=== PATIENT | male | born 1975 | race Caucasian/White ===

== ENCOUNTER 2016-11-14 15:51 | Inpatient (IN) | payer OTHER ==
[2016-11-14 17:19] VITALS: BMI 22.6
--- NOTE | 2016-11-14 20:18 | HP ---
COWS - Scale Resting Pulse: 1= [place] 81-100 Sweatin=Flushed/Facial Moisture Restless Observation: 5= Unable to Sit Still Pupil Size: 1= Pupils >than Normal Bone or Joint Aches: 4=Acute Joint/Muscle Pain Runny Nose/ Eye Tearin= None GI Upset > 30mins: 3= Vomiting/Diarrhea Tremor Observation: 1= Tremor [place], Not Seen Yawning Observation: 0= None Anxiety or Irritability: 4=Extreme Anxiety Goose Flesh Skin: 0=Smooth Skin COWS Score: 21 CIWA Score - CIWA Score Nausea/Vomitin Muscle Tremors: 1-None Visible, but [place] Anxiety: 4-Mod. Anxious/Guarded Agitation: 4-Moderately Restless Paroxysmal Sweats: 3 Orientation: 0-Oriented Tacttile Disturbances: 0-None Auditory Disturbances: 0-None Visual Disturbances: 0-None Headache: 0-None Present CIWA-Ar Total Score: 15 Admission ROS BHS - HPI Chief Complaint: C/O WITHDRAWAL SX'S. SEEKING DETOX TXMENT Allergies/Adverse Reactions: Allergies Allergy/AdvReac Type Severity Reaction Status Date / Time No Known Allergies Allergy Verified 11/14/16 19:34 History of Present Illness: 41 Y.O. MALE WITH POLYSUBSTANCE ABUSE TO INCLUDE ALCOHOL ADMITTED FOR DETOX. CLIENT IS KNOWN TO [facility]. DENIES ANY SIGNIFICANT DRUG FREE PERIOD. Exam Limitations: Language Barrier (IRISH SPEAKING. CAN MAKE NEEDS KNOWN IN [place]) - Ebola screening Have you traveled outside of the country in the last 21 days: No Have you had contact with anyone from an Ebola affected area: No Have you been sick,other than usual withdrawal symptoms: No Do you have a fever: No - Review of Systems Constitutional: Chills, Loss of Appetite, Malaise, Night Sweats, Changes in sleep EENT: reports: No Symptoms Reported Respiratory: reports: No Symptoms reported Cardiac: reports: No Symptoms Reported GI: reports: Nausea, Poor Appetite, Vomiting : reports: No Symptoms Reported Musculoskeletal: reports: Back Pain Integumentary: reports: No Symptoms Reported Neuro: reports: No Symptoms reported Endocrine: reports: No Symptoms Reported Hematology: reports: No Symptoms Reported Psychiatric: reports: Anxious, Depressed Other Systems: Reviewed and Negative Patient History - Patient Medical History Hx Anemia: No Hx Asthma: Yes Hx Chronic Obstructive Pulmonary Disease (COPD): No Hx Cancer: No Hx Cardiac Disorders: No Hx Congestive Heart Failure: No Hx Hypertension: No Hx Hypercholesterolemia: No Hx Pacemaker: No HX Cerebrovascular Accident: No Hx Seizures: No Hx Dementia: No Hx Diabetes: No Hx Gastrointestinal Disorders: No Hx Liver Disease: No Hx Genitourinary Disorders: No Hx Sexually Transmitted Disorders: No Hx Renal Disease (ESRD): No Hx Thyroid Disease: No Hx Human Immunodeficiency Virus (HIV): No (Last Tested Approx. 6 months ago: NEGATIVE.) Hx Hepatitis C: Yes (TX'ED) Hx Depression: Yes Hx Suicide Attempt: No Hx Bipolar Disorder: Yes Hx Schizophrenia: No Other Medical History: ANXIETY - Patient Surgical History Past Surgical History: No Hx Neurologic Surgery: No Hx Cataract Extraction: No Hx Cardiac Surgery: No Hx Lung Surgery: No Hx Breast Surgery: No Hx Breast Biopsy: No Hx Abdominal Surgery: No Hx Appendectomy: No Hx Cholecystectomy: No Hx Genitourinary Surgery: No Hx Section: No Hx Orthopedic Surgery: No Anesthesia Reaction: No - PPD History Previous Implant?: Yes Documented Results: Negative w/o proof Implanted On Prior R Admission?: No PPD to be Administered?: Yes - Smoking Cessation Smoking history: Current every day smoker Have you smoked in the past 12 months: Yes Aproximately how many cigarettes per day: 7 Cigars Per Day: 0 Hx Chewing Tobacco Use: No Initiated information on smoking cessation: Yes 'Breaking Loose' booklet given: 11/14/16 - Substance & Tx. History Hx Alcohol Use: Yes Hx Substance Use: Yes Substance Use Type: Alcohol, Cocaine, Heroin, Marijuana, Opiates, Tranquilizers (XANAX) Hx Substance Use Treatment: Yes ([facility]) - Substances Abused Alcohol Route: Oral Frequency: Daily Amount used: 12 beers 24ounce Age of first use: 15 Date of Last Use: 11/13/16 Heroin Route: Injection Frequency: Daily Amount used: 12 bags Age of first use: 15 Date of Last Use: 11/14/16 Alprazolam (Xanax) Route: Oral Frequency: Daily Amount used: 3 sticks Age of first use: 15 Date of Last Use: 11/13/16 Family Disease History - Family Disease History Family History: Denies Admission Physical Exam BHS - Vital Signs Vital Signs: Vital Signs - 24 hr 11/14/16 17:17 Temperature 97.1 F L Pulse Rate 82 Respiratory 18 Rate Blood Pressure 118/66 - Physical General Appearance: Yes: Appropriately Dressed, Mild Distress, Sweating, Anxious HEENTM: Yes: EOMI, Normocephalic, Normal Voice, ELIJAH, Pharynx Normal Respiratory: Yes: Chest Non-Tender, Lungs Clear, Normal Breath Sounds, No Respiratory Distress, No Accessory Muscle Use Neck: Yes: No masses,lesions,Nodules, Supple, Trachea in good position Breast: Yes: Breast Exam Deferred Cardiology: Yes: Regular Rhythm, Regular Rate, S1, S2 Abdominal: Yes: Normal Bowel Sounds, Non Tender, Flat, Soft Genitourinary: Yes: Within Normal Limits Back: Yes: Normal Inspection Musculoskeletal: Yes: full range of Motion, Gait Steady Extremities: Yes: Normal Capillary Refill, Normal Range of Motion, Non-Tender, Tremors Neurological: Yes: diesel trailer mechanic II-XII NML intact, Fully Oriented, Alert, Motor Strength 5/5 Integumentary: Yes: Normal Color, Warm, Track [place] Lymphatic: Yes: Within Normal Limits - Diagnostic (1) Alcohol dependence with uncomplicated withdrawal Current Visit: Yes Status: Chronic (2) Cannabis dependence, uncomplicated Current Visit: Yes Status: Chronic (3) Opioid dependence with withdrawal Current Visit: Yes Status: Chronic (4) Nicotine dependence Current Visit: Yes Status: Chronic Qualifiers: Nicotine product type: cigarettes Substance use status: uncomplicated Qualified Code(s): F17.210 - Nicotine dependence, cigarettes, uncomplicated (5) Cocaine dependence, uncomplicated Current Visit: Yes Status: Chronic (6) Sedative, hypnotic, or anxiolytic withdrawal Current Visit: Yes Status: Chronic (7) Asthma Current Visit: Yes Status: Chronic Qualifiers: Asthma severity: mild intermittent Asthma complication type: uncomplicated Qualified Code(s): J45.20 - Mild intermittent asthma, uncomplicated Cleared for Admission [facility] - Detox or Rehab [facility] Level of Care: Medically Managed Detox Regimen/Protocol: Methadone/Librium [facility] Breath Alcohol Content Breath Alcohol Content: 0 Urine Drug Screen - Results Drug Screen Negative: No Urine Drug Screen Results: THC-Marijuana, SHAILA-Cocaine, OPI-Opiates, BZO- Benzodiazepines, MTD-Methadone, OXY-Oxycodone
[2016-11-14] MEDS ORDERED: NICOTINE POLACRILEX 2 MG GUM BC PRN (20:33)
[2016-11-14] MEDS ORDERED: ACETAMINOPHEN 325 MG TABLET (FP) PO PRN (20:33)
[2016-11-14] MEDS ORDERED: guaiFENesin/D-METHORPHAN HB 10 ML UNIT-DOSE CUPS PO PRN (20:33)
[2016-11-14] MEDS ORDERED: MAGNESIUM CITRATE 300 ML BOTTLE PO PRN (20:33)
[2016-11-14] MEDS ORDERED: LOPERAMIDE HCL 2 MG CAPSULE PO PRN (20:33)
[2016-11-14] MEDS ORDERED: MAG HYDROX/AL HYDROX/SIMETH 30 ML UNIT-DOSE CUP PO PRN (20:33)
[2016-11-14] MEDS ORDERED: diphenhydrAMINE HCL 50 MG CAPSULE PO PRN (20:33)
[2016-11-14] MEDS ORDERED: MENTHOL/PHENOL 1 EACH UD MM PRN (20:33)
[2016-11-14] MEDS ORDERED: MAGNESIUM HYDROX 2400MG/30ML ORAL SUSPENSION 30 ML CUP PO PRN (20:33)
[2016-11-14] MEDS ORDERED: hydrOXYzine PAMOATE 50 MG CAPSULE (FP) PO PRN (20:33)
[2016-11-14] MEDS ORDERED: chlordiazePOXIDE HCL 25 MG CAPSULE PO PRN (20:33)
[2016-11-14] MEDS ORDERED: IBUPROFEN 400 MG TABLET (FP) PO PRN (20:33)
[2016-11-14] MEDS ORDERED: METHADONE HCL 10 MG TABLET (FOR DETOX USE ONLY) PO ONE ×2 (20:33→23:00)
[2016-11-14] MEDS ORDERED: P-EPHED 60MG/TRIPROLIDI 2.5MG TABLET PO PRN (20:33)
[2016-11-14] MEDS: NICOTINE 14 MG/24 HOURS TOPICAL PATCH TD SCH (21:09)
[2016-11-14 22:21] LABS: URINE APPEARANCE CLEAR; URINE BILIRUBIN NEGATIVE (NEGATIVE); URINE BLOOD NEGATIVE (NEGATIVE); URINE COLOR YELLOW; URINE GLUCOSE (UA) NEGATIVE (NEGATIVE); URINE KETONE TRACE (NEGATIVE); URINE LEUK ESTERASE NEGATIVE (NEGATIVE); URINE NITRITE NEGATIVE (NEGATIVE); URINE PROTEIN NEGATIVE (NEGATIVE); URINE UROBILINOGEN NEGATIVE E.U./dl (0.2-1.0)
[2016-11-14] MEDS: THIAMINE HCL 100 MG TABLET (FP) PO SCH (22:39)
[2016-11-14] MEDS: chlordiazePOXIDE HCL 25 MG CAPSULE PO SCH (22:39)
[2016-11-15] MEDS: chlordiazePOXIDE HCL 25 MG CAPSULE PO SCH ×4 (05:42→22:18)
[2016-11-15] MEDS ORDERED: METHADONE HCL 10 MG TABLET (FOR DETOX USE ONLY) PO SCH (10:00)
[2016-11-15 10:05] LABS: MCH 29.8 pg (25.7-33.7); MCHC 33.5 g/dl (32.0-35.9); MEAN CELL VOLUME 88.9 fl (80-96); MEAN PLT VOLUME 7.9 fl (7.5-11.1); PLATELET COUNT 208 K/MM3 (134-434); RDW 13.5 % (11.9-15.9); WHITE BLOOD COUNT 6.9 K/mm3 (4.0-10.0)
[2016-11-15 10:25] LABS: ALBUMIN 3.3 g/dl (3.4-5.0); ALK PHOS 62 U/L (45-117); ANION GAP 6 (8-16); BILIRUBIN,TOTAL 0.6 mg/dL (0.2-1.0); CALCIUM 8.8 mg/dL (8.5-10.1); CO2 30 mmol/L (21-32); CREATININE 0.9 mg/dL (0.7-1.3); GLUCOSE,RANDOM 89 mg/dL (74-106); SGOT/AST 21 U/L (15-37); SGPT/ALT 22 U/L (12-78)
--- NOTE | 2016-11-15 10:26 | PN ---
S CIWA - CIWA Score Nausea/Vomitin Muscle Tremors: 3 Anxiety: 3 Agitation: 3 Paroxysmal Sweats: 1-Minimal Palms Moist Orientation: 0-Oriented Tacttile Disturbances: 1-Very Mild Itch/Numbness Auditory Disturbances: 1-Very Mild Visual Disturbances: 1-Very Mild Sensitivity Headache: 2-Mild CIWA-Ar Total Score: 18 BHS Progress Note (SOAP) Subjective: ALERT,IRRITABLE,ANXIOUS,INTERRUPTED SLEEP,TREMOR,PAIN IN THE [place] AND BACK Objective: 11/15/16 10:24 Vital Signs Temperature 97.6 F 11/15/16 09:51 Pulse Rate 60 11/15/16 09:51 Respiratory Rate 18 11/15/16 09:51 Blood Pressure 145/83 11/15/16 09:51 O2 Sat by Pulse Oximetry (%) EKG SINUS BRADYCARDIA 57/MIN NO CHEST PAIN,NO SOB,NO DIZZINESS Laboratory Last Values WBC 6.9 K/mm3 (4.0-10.0) 11/15/16 07:00 RBC 4.25 M/mm3 (4.00-5.60) 11/15/16 07:00 Hgb 12.7 GM/dL (11.7-16.9) D 11/15/16 07:00 Hct 37.8 % (35.4-49) D 11/15/16 07:00 MCV 88.9 fl (80-96) 11/15/16 07:00 MCHC 33.5 g/dl (32.0-35.9) 11/15/16 07:00 RDW 13.5 % (11.9-15.9) 11/15/16 07:00 Plt Count 208 K/MM3 (134-434) 11/15/16 07:00 MPV 7.9 fl (7.5-11.1) 11/15/16 07:00 Urine Color Yellow 11/14/16 22:10 Urine Appearance Clear 11/14/16 22:10 Urine pH 5.0 (5.0-8.0) 11/14/16 22:10 Ur Specific [place] 1.030 (1.001-1.035) 11/14/16 22:10 Urine Protein Negative (NEGATIVE) 11/14/16 22:10 Urine Glucose (UA) Negative (NEGATIVE) 11/14/16 22:10 Urine Ketones Trace (NEGATIVE) H 11/14/16 22:10 Urine Blood Negative (NEGATIVE) 11/14/16 22:10 Urine Nitrite Negative (NEGATIVE) 11/14/16 22:10 Urine Bilirubin Negative (NEGATIVE) 11/14/16 22:10 Urine Urobilinogen Negative E.U./dl (0.2-1.0) 11/14/16 22:10 Ur Leukocyte Esterase Negative (NEGATIVE) 11/14/16 22:10 LABS PENDING Assessment: 11/15/16 10:26 WITHDRAWAL SYMPTOM Plan: CONTINUE DETOX
[2016-11-15 10:28] LABS: HIV 1 & 2 AB NEGATIVE; HIV 1 AGp24 NEGATIVE
[2016-11-15] MEDS: NICOTINE 14 MG/24 HOURS TOPICAL PATCH TD SCH (10:37)
[2016-11-15] MEDS: PRENATAL VITAMINS W/ FOLIC ACID TABLET (FP) PO SCH (10:39)
--- NOTE | 2016-11-15 11:12 | CONSULT ---
[facility] Psychiatric Consult - Data Date of interview: 11/15/16 Admission source: [facility] Identifying data: This is 41 years old male with psychiatric hospitalization history intoxciated with: Ngppy1lb, Cocaine, Cannabis, Opioids and Xanax Substance Abuse History: - Smoking Cessation. Smoking history: Current every day smoker. Have you smoked in the past 12 months: Yes. Aproximately how many cigarettes per day: 7. Cigars Per Day: 0. Hx Chewing Tobacco Use: No. Initiated information on smoking cessation: Yes. 'Breaking Loose' booklet given : 11/14/16. - Substance & Tx. History. Hx Alcohol Use: Yes. Hx Substance Use : Yes. Substance Use Type: Alcohol, Cocaine, Heroin, Marijuana, Opiates, Tranquilizers (XANAX). Hx Substance Use Treatment: Yes ([facility] - Substances Abused. Alcohol. Route: Oral. Frequency: Daily. Amount used: 12 beers 24ounce. Age of first use: 15. Date of Last Use: 11/13/16. Heroin. Route : Injection. Frequency: Daily. Amount used: 12 bags. Age of first use: 15. Date of Last Use: 11/14/16. Alprazolam (Xanax). Route: Oral. Frequency: Daily. Amount used: 3 sticks. Age of first use: 15. Date of Last Use: Medical History: Asthma Psychiatric History: Patient reports history of depression and anxiety, reports most recent psychiatric admission for safety on 2012 at [facility], reports taking prior to admission: Trazodone 50mg po qhs. Seroquel 200mg po qhs Physical/Sexual Abuse/Trauma History: Denies Additional Comment: Trazodone 50mg po qhs. Seroquel 200mg po qhs Mental Status Exam - Mental Status Exam Alert and Oriented to: Person Cognitive Function: Fair Patient Appearance: Unkempt Mood: Sad Affect: Flat Patient Behavior: Sedated Speech Pattern: Delayed Voice Loudness: Mildly Soft/Quiet Thought Process: Circumstantial Thought Disorder: Being Controlled Hallucinations: Denies Suicidal Ideation: Denies Homicidal Ideation: Denies Insight/Judgement: Fair Sleep: Difficulty falling asleep Appetite: Fair Muscle strength/Tone: Mild Hypotonicity Gait/Station: Shuffling Additional Comments: Trazodone 50mg po qhs. Seroquel 200mg po qhs Psychiatric Findings - Problem List ([place] 1, 2,3) (1) Alcohol dependence with uncomplicated withdrawal Current Visit: Yes Status: Chronic (2) Cannabis dependence, uncomplicated Current Visit: Yes Status: Chronic (3) Cocaine dependence, uncomplicated Current Visit: Yes Status: Chronic (4) Nicotine dependence Current Visit: Yes Status: Chronic Qualifiers: Nicotine product type: cigarettes Substance use status: uncomplicated Qualified Code(s): F17.210 - Nicotine dependence, cigarettes, uncomplicated (5) Opioid dependence with withdrawal Current Visit: Yes Status: Chronic (6) Sedative, hypnotic, or anxiolytic withdrawal Current Visit: Yes Status: Chronic (7) Drug-induced mood disorder Current Visit: Yes Status: Acute - Initial Treatment Plan Initial Treatment Plan: Trazodone 50mg po qhs. Seroquel 200mg po qhs
--- NOTE | 2016-11-15 15:27 | EKG ---
Test Reason : Blood Pressure : / mmHG Vent. Rate : 057 BPM Atrial Rate : 057 BPM P-R Int : 164 ms QRS Dur : 094 ms QT Int : 416 ms P-R-T Axes : 036 030 033 degrees QTc Int : 404 ms SINUS BRADYCARDIA INCOMPLETE RIGHT BUNDLE BRANCH BLOCK BORDERLINE ECG NO PREVIOUS ECGS AVAILABLE Confirmed by ADORE JACKSON MD ([id number]) on 11/15/2016 3:27:09 PM Referred By: Confirmed By:ADORE JACKSON MD
[2016-11-15] MEDS: QUEtiapine FUMARATE 200 MG TABLET PO SCH (22:18)
[2016-11-15] MEDS: traZODone HCL 50 MG TABLET (FP) PO SCH (22:18)
[2016-11-15] MEDS: THIAMINE HCL 100 MG TABLET (FP) PO SCH (22:18)
[2016-11-16] MEDS: chlordiazePOXIDE HCL 25 MG CAPSULE PO SCH ×3 (05:20→17:29)
[2016-11-16] MEDS: NICOTINE 14 MG/24 HOURS TOPICAL PATCH TD SCH (10:44)
[2016-11-16] MEDS: PRENATAL VITAMINS W/ FOLIC ACID TABLET (FP) PO SCH (10:44)
[2016-11-16] MEDS: METHADONE HCL 5 MG TABLET (FOR DETOX USE ONLY) PO SCH (10:44)
--- NOTE | 2016-11-16 15:23 | PN ---
[facility] CIWA - CIWA Score Nausea/Vomitin-Mild Nausea/No Vomiting Muscle Tremors: 2 Anxiety: 4-Mod. Anxious/Guarded Agitation: 1-Slight > Activity Paroxysmal Sweats: 2 Orientation: 2-Disoriented Date<2 days Tacttile Disturbances: 0-None Auditory Disturbances: 3-Moderate Harsh/Frighten Visual Disturbances: 1-Very Mild Sensitivity Headache: 0-None Present CIWA-Ar Total Score: 16 S COWS - Scale Resting Pulse: 0= [place] 80 or Below Sweatin= Chills/Flushing Restless Observation: 1= Difficult to Sit Still Pupil Size: 0= Normal to Room Light Bone or Joint Aches: 1= Mild Discomfort Runny Nose/ Eye Tearin= None GI Upset > 30mins: 1= Stomach Cramp Tremor Observation of Outstretched Hands: 2= Slight Tremor Visible Yawning Observation: 1= 1-2x During Session Anxiety or Irritability: 2=Irritable/Anxious Goose Flesh Skin: 3=Piloerection COWS Score: 12 S Progress Note (SOAP) Subjective: Fatigue, Interrupted Sleep, Anxious. Objective: PT. A & O X 2 (DISORIENTED ABOUT DAY / DATE). 11/16/16 15:21 Vital Signs Temperature 97.7 F 11/16/16 14:19 Pulse Rate 55 L 11/16/16 14:19 Respiratory Rate 18 11/16/16 14:19 Blood Pressure 141/87 11/16/16 14:19 O2 Sat by Pulse Oximetry (%) Laboratory Last Values WBC 6.9 K/mm3 (4.0-10.0) 11/15/16 07:00 RBC 4.25 M/mm3 (4.00-5.60) 11/15/16 07:00 Hgb 12.7 GM/dL (11.7-16.9) D 11/15/16 07:00 Hct 37.8 % (35.4-49) D 11/15/16 07:00 MCV 88.9 fl (80-96) 11/15/16 07:00 MCHC 33.5 g/dl (32.0-35.9) 11/15/16 07:00 RDW 13.5 % (11.9-15.9) 11/15/16 07:00 Plt Count 208 K/MM3 (134-434) 11/15/16 07:00 MPV 7.9 fl (7.5-11.1) 11/15/16 07:00 Sodium 141 mmol/L (136-145) 11/15/16 07:00 Potassium 3.9 mmol/L (3.5-5.1) 11/15/16 07:00 Chloride 105 mmol/L (98-107) 11/15/16 07:00 Carbon Dioxide 30 mmol/L (21-32) 11/15/16 07:00 Anion Gap 6 (8-16) L 11/15/16 07:00 BUN 29 mg/dL (7-18) H D 11/15/16 07:00 Creatinine 0.9 mg/dL (0.7-1.3) 11/15/16 07:00 Creat Clearance w eGFR > 60 (>60) 11/15/16 07:00 Random Glucose 89 mg/dL (74-106) 11/15/16 07:00 Calcium 8.8 mg/dL (8.5-10.1) 11/15/16 07:00 Total Bilirubin 0.6 mg/dL (0.2-1.0) D 11/15/16 07:00 AST 21 U/L (15-37) D 11/15/16 07:00 ALT 22 U/L (12-78) 11/15/16 07:00 Alkaline Phosphatase 62 U/L (45-117) D 11/15/16 07:00 Total Protein 6.0 g/dl (6.4-8.2) L 11/15/16 07:00 Albumin 3.3 g/dl (3.4-5.0) L 11/15/16 07:00 Urine Color Yellow 11/14/16 22:10 Urine Appearance Clear 11/14/16 22:10 Urine pH 5.0 (5.0-8.0) 11/14/16 22:10 Ur Specific [place] 1.030 (1.001-1.035) 11/14/16 22:10 Urine Protein Negative (NEGATIVE) 11/14/16 22:10 Urine Glucose (UA) Negative (NEGATIVE) 11/14/16 22:10 Urine Ketones Trace (NEGATIVE) H 11/14/16 22:10 Urine Blood Negative (NEGATIVE) 11/14/16 22:10 Urine Nitrite Negative (NEGATIVE) 11/14/16 22:10 Urine Bilirubin Negative (NEGATIVE) 11/14/16 22:10 Urine Urobilinogen Negative E.U./dl (0.2-1.0) 11/14/16 22:10 Ur Leukocyte Esterase Negative (NEGATIVE) 11/14/16 22:10 RPR Titer Nonreactive (NONREACTIVE) 11/15/16 07:00 Hepatitis C Antibody >11.0 s/co ratio (0.0-0.9) H 11/14/16 07:00 HIV 1&2 Antibody Screen Negative 11/14/16 07:00 HIV P24 Antigen Negative 11/14/16 07:00 LABS NOTED. 11/16/16 15:22 Assessment: 11/16/16 15:22 WITHDRAWAL SYMPTOMS. Plan: CONTINUE DETOX. INCREASE PO FLUIDS. ADVISED PATIENT TO FOLLOW-UP WITH BEAD SUPERVISOR / REHAB MEDICAL PROVIDER AFTER DISCHARGE FROM DETOX FOR GENERAL MEDICAL ASSESSMENT AND FOR ABNORMAL ADMISSION LAB VALUES.
[2016-11-16] MEDS: traZODone HCL 50 MG TABLET (FP) PO SCH (22:32)
[2016-11-16] MEDS: QUEtiapine FUMARATE 200 MG TABLET PO SCH (22:32)
[2016-11-16] MEDS: THIAMINE HCL 100 MG TABLET (FP) PO SCH (22:32)
[2016-11-16] MEDS: chlordiazePOXIDE 5 MG CAPSULE PO SCH (22:32)
[2016-11-17] MEDS: chlordiazePOXIDE 5 MG CAPSULE PO SCH ×3 (05:50→17:46)
[2016-11-17] MEDS: PRENATAL VITAMINS W/ FOLIC ACID TABLET (FP) PO SCH (10:35)
[2016-11-17] MEDS: METHADONE HCL 5 MG TABLET (FOR DETOX USE ONLY) PO SCH (10:35)
[2016-11-17] MEDS: NICOTINE 14 MG/24 HOURS TOPICAL PATCH TD SCH (10:35)
--- NOTE | 2016-11-17 14:48 | PN ---
BHS Progress Note (SOAP) Subjective: Body Aches, Fatigue. Objective: PT. A & O X 3 . 11/17/16 14:47 Vital Signs Temperature 96.1 F L 11/17/16 13:13 Pulse Rate 55 L 11/17/16 13:13 Respiratory Rate 16 11/17/16 13:13 Blood Pressure 118/69 11/17/16 13:13 O2 Sat by Pulse Oximetry (%) Laboratory Last Values WBC 6.9 K/mm3 (4.0-10.0) 11/15/16 07:00 RBC 4.25 M/mm3 (4.00-5.60) 11/15/16 07:00 Hgb 12.7 GM/dL (11.7-16.9) D 11/15/16 07:00 Hct 37.8 % (35.4-49) D 11/15/16 07:00 MCV 88.9 fl (80-96) 11/15/16 07:00 MCHC 33.5 g/dl (32.0-35.9) 11/15/16 07:00 RDW 13.5 % (11.9-15.9) 11/15/16 07:00 Plt Count 208 K/MM3 (134-434) 11/15/16 07:00 MPV 7.9 fl (7.5-11.1) 11/15/16 07:00 Sodium 141 mmol/L (136-145) 11/15/16 07:00 Potassium 3.9 mmol/L (3.5-5.1) 11/15/16 07:00 Chloride 105 mmol/L (98-107) 11/15/16 07:00 Carbon Dioxide 30 mmol/L (21-32) 11/15/16 07:00 Anion Gap 6 (8-16) L 11/15/16 07:00 BUN 29 mg/dL (7-18) H D 11/15/16 07:00 Creatinine 0.9 mg/dL (0.7-1.3) 11/15/16 07:00 Creat Clearance w eGFR > 60 (>60) 11/15/16 07:00 Random Glucose 89 mg/dL (74-106) 11/15/16 07:00 Calcium 8.8 mg/dL (8.5-10.1) 11/15/16 07:00 Total Bilirubin 0.6 mg/dL (0.2-1.0) D 11/15/16 07:00 AST 21 U/L (15-37) D 11/15/16 07:00 ALT 22 U/L (12-78) 11/15/16 07:00 Alkaline Phosphatase 62 U/L (45-117) D 11/15/16 07:00 Total Protein 6.0 g/dl (6.4-8.2) L 11/15/16 07:00 Albumin 3.3 g/dl (3.4-5.0) L 11/15/16 07:00 Urine Color Yellow 11/14/16 22:10 Urine Appearance Clear 11/14/16 22:10 Urine pH 5.0 (5.0-8.0) 11/14/16 22:10 Ur Specific [place] 1.030 (1.001-1.035) 11/14/16 22:10 Urine Protein Negative (NEGATIVE) 11/14/16 22:10 Urine Glucose (UA) Negative (NEGATIVE) 11/14/16 22:10 Urine Ketones Trace (NEGATIVE) H 11/14/16 22:10 Urine Blood Negative (NEGATIVE) 11/14/16 22:10 Urine Nitrite Negative (NEGATIVE) 11/14/16 22:10 Urine Bilirubin Negative (NEGATIVE) 11/14/16 22:10 Urine Urobilinogen Negative E.U./dl (0.2-1.0) 11/14/16 22:10 Ur Leukocyte Esterase Negative (NEGATIVE) 11/14/16 22:10 RPR Titer Nonreactive (NONREACTIVE) 11/15/16 07:00 Hepatitis C Antibody >11.0 s/co ratio (0.0-0.9) H 11/14/16 07:00 HIV 1&2 Antibody Screen Negative 11/14/16 07:00 HIV P24 Antigen Negative 11/14/16 07:00 LABS NOTED. 11/17/16 14:48 Assessment: 11/17/16 14:48 WITHDRAWAL SYMPTOMS. Plan: CONTINUE DETOX. ADVISED PATIENT TO FOLLOW-UP WITH SENIOR QA AUTOMATION ENGINEER / REHAB MEDICAL PROVIDER AFTER DISCHARGE FROM DETOX FOR GENERAL MEDICAL ASSESSMENT AND FOR ABNORMAL ADMISSION LAB VALUES.
[2016-11-17] MEDS: QUEtiapine FUMARATE 200 MG TABLET PO SCH (23:10)
[2016-11-17] MEDS: traZODone HCL 50 MG TABLET (FP) PO SCH (23:10)
[2016-11-17] MEDS: THIAMINE HCL 100 MG TABLET (FP) PO SCH (23:10)
[2016-11-17] MEDS: chlordiazePOXIDE HCL 10 MG CAPSULE PO SCH (23:11)
[2016-11-18] MEDS: chlordiazePOXIDE HCL 10 MG CAPSULE PO SCH ×3 (05:44→17:29)
[2016-11-18] MEDS ORDERED: METHADONE HCL 10 MG TABLET (FOR DETOX USE ONLY) PO SCH (10:00)
[2016-11-18] MEDS: NICOTINE 14 MG/24 HOURS TOPICAL PATCH TD SCH (10:33)
[2016-11-18] MEDS: PRENATAL VITAMINS W/ FOLIC ACID TABLET (FP) PO SCH (10:33)
--- NOTE | 2016-11-18 11:05 | PN ---
S Progress Note (SOAP) Subjective: Anxious, Interrupted Sleep, Body Aches, Fatigued, Sweats Objective: Vital Signs Temperature 96.3 F L 11/18/16 06:32 Pulse Rate 59 L 11/18/16 06:32 Respiratory Rate 18 11/18/16 06:32 Blood Pressure 129/71 11/18/16 06:32 O2 Sat by Pulse Oximetry (%) Laboratory Last Values WBC 6.9 K/mm3 (4.0-10.0) 11/15/16 07:00 RBC 4.25 M/mm3 (4.00-5.60) 11/15/16 07:00 Hgb 12.7 GM/dL (11.7-16.9) D 11/15/16 07:00 Hct 37.8 % (35.4-49) D 11/15/16 07:00 MCV 88.9 fl (80-96) 11/15/16 07:00 MCHC 33.5 g/dl (32.0-35.9) 11/15/16 07:00 RDW 13.5 % (11.9-15.9) 11/15/16 07:00 Plt Count 208 K/MM3 (134-434) 11/15/16 07:00 MPV 7.9 fl (7.5-11.1) 11/15/16 07:00 Sodium 141 mmol/L (136-145) 11/15/16 07:00 Potassium 3.9 mmol/L (3.5-5.1) 11/15/16 07:00 Chloride 105 mmol/L (98-107) 11/15/16 07:00 Carbon Dioxide 30 mmol/L (21-32) 11/15/16 07:00 Anion Gap 6 (8-16) L 11/15/16 07:00 BUN 29 mg/dL (7-18) H D 11/15/16 07:00 Creatinine 0.9 mg/dL (0.7-1.3) 11/15/16 07:00 Creat Clearance w eGFR > 60 (>60) 11/15/16 07:00 Random Glucose 89 mg/dL (74-106) 11/15/16 07:00 Calcium 8.8 mg/dL (8.5-10.1) 11/15/16 07:00 Total Bilirubin 0.6 mg/dL (0.2-1.0) D 11/15/16 07:00 AST 21 U/L (15-37) D 11/15/16 07:00 ALT 22 U/L (12-78) 11/15/16 07:00 Alkaline Phosphatase 62 U/L (45-117) D 11/15/16 07:00 Total Protein 6.0 g/dl (6.4-8.2) L 11/15/16 07:00 Albumin 3.3 g/dl (3.4-5.0) L 11/15/16 07:00 Urine Color Yellow 11/14/16 22:10 Urine Appearance Clear 11/14/16 22:10 Urine pH 5.0 (5.0-8.0) 11/14/16 22:10 Ur Specific [place] 1.030 (1.001-1.035) 11/14/16 22:10 Urine Protein Negative (NEGATIVE) 11/14/16 22:10 Urine Glucose (UA) Negative (NEGATIVE) 11/14/16 22:10 Urine Ketones Trace (NEGATIVE) H 11/14/16 22:10 Urine Blood Negative (NEGATIVE) 11/14/16 22:10 Urine Nitrite Negative (NEGATIVE) 11/14/16 22:10 Urine Bilirubin Negative (NEGATIVE) 11/14/16 22:10 Urine Urobilinogen Negative E.U./dl (0.2-1.0) 11/14/16 22:10 Ur Leukocyte Esterase Negative (NEGATIVE) 11/14/16 22:10 RPR Titer Nonreactive (NONREACTIVE) 11/15/16 07:00 Hepatitis C Antibody >11.0 s/co ratio (0.0-0.9) H 11/14/16 07:00 HIV 1&2 Antibody Screen Negative 11/14/16 07:00 HIV P24 Antigen Negative 11/14/16 07:00 Vitals and Labs noted Hep C- Known Dx 11/18/16 11:06 Assessment: Withdrawal Symptoms Plan: Continue Detox
[2016-11-18] MEDS: traZODone HCL 50 MG TABLET (FP) PO SCH (22:13)
[2016-11-18] MEDS: QUEtiapine FUMARATE 200 MG TABLET PO SCH (22:13)
[2016-11-18] MEDS: THIAMINE HCL 100 MG TABLET (FP) PO SCH (22:13)
[2016-11-19] MEDS ORDERED: METHADONE HCL 5 MG TABLET (FOR DETOX USE ONLY) PO SCH (06:00)
--- NOTE | 2016-11-19 09:00 | DS ---
[facility] Detox Discharge Summary Admission Date: 11/14/16 Discharge Date: 11/19/16 - History Present History: Alcohol Dependence, Cannabis Dependence, Cocaine Dependence, Opioid Dependence, Sedative Dependence Pertinent Past History: Asthma - Physical Exam Results Vital Signs: Vital Signs Temperature 96.5 F L 11/19/16 06:21 Pulse Rate 73 11/19/16 06:21 Respiratory Rate 18 11/19/16 06:21 Blood Pressure 133/72 11/19/16 06:21 O2 Sat by Pulse Oximetry (%) Pertinent Admission Physical Exam Findings: Withdrawal sx Laboratory Last Values WBC 6.9 K/mm3 (4.0-10.0) 11/15/16 07:00 RBC 4.25 M/mm3 (4.00-5.60) 11/15/16 07:00 Hgb 12.7 GM/dL (11.7-16.9) D 11/15/16 07:00 Hct 37.8 % (35.4-49) D 11/15/16 07:00 MCV 88.9 fl (80-96) 11/15/16 07:00 MCHC 33.5 g/dl (32.0-35.9) 11/15/16 07:00 RDW 13.5 % (11.9-15.9) 11/15/16 07:00 Plt Count 208 K/MM3 (134-434) 11/15/16 07:00 MPV 7.9 fl (7.5-11.1) 11/15/16 07:00 Sodium 141 mmol/L (136-145) 11/15/16 07:00 Potassium 3.9 mmol/L (3.5-5.1) 11/15/16 07:00 Chloride 105 mmol/L (98-107) 11/15/16 07:00 Carbon Dioxide 30 mmol/L (21-32) 11/15/16 07:00 Anion Gap 6 (8-16) L 11/15/16 07:00 BUN 29 mg/dL (7-18) H D 11/15/16 07:00 Creatinine 0.9 mg/dL (0.7-1.3) 11/15/16 07:00 Creat Clearance w eGFR > 60 (>60) 11/15/16 07:00 Random Glucose 89 mg/dL (74-106) 11/15/16 07:00 Calcium 8.8 mg/dL (8.5-10.1) 11/15/16 07:00 Total Bilirubin 0.6 mg/dL (0.2-1.0) D 11/15/16 07:00 AST 21 U/L (15-37) D 11/15/16 07:00 ALT 22 U/L (12-78) 11/15/16 07:00 Alkaline Phosphatase 62 U/L (45-117) D 11/15/16 07:00 Total Protein 6.0 g/dl (6.4-8.2) L 11/15/16 07:00 Albumin 3.3 g/dl (3.4-5.0) L 11/15/16 07:00 Urine Color Yellow 11/14/16 22:10 Urine Appearance Clear 11/14/16 22:10 Urine pH 5.0 (5.0-8.0) 11/14/16 22:10 Ur Specific [place] 1.030 (1.001-1.035) 11/14/16 22:10 Urine Protein Negative (NEGATIVE) 11/14/16 22:10 Urine Glucose (UA) Negative (NEGATIVE) 11/14/16 22:10 Urine Ketones Trace (NEGATIVE) H 11/14/16 22:10 Urine Blood Negative (NEGATIVE) 11/14/16 22:10 Urine Nitrite Negative (NEGATIVE) 11/14/16 22:10 Urine Bilirubin Negative (NEGATIVE) 11/14/16 22:10 Urine Urobilinogen Negative E.U./dl (0.2-1.0) 11/14/16 22:10 Ur Leukocyte Esterase Negative (NEGATIVE) 11/14/16 22:10 RPR Titer Nonreactive (NONREACTIVE) 11/15/16 07:00 Hepatitis C Antibody >11.0 s/co ratio (0.0-0.9) H 11/14/16 07:00 HIV 1&2 Antibody Screen Negative 11/14/16 07:00 HIV P24 Antigen Negative 11/14/16 07:00 labs noted,known hepc + and treated. - Treatment Hospital Course: Detox Protocol Followed, Detoxed Safely, Responded well, Discharged Condition Good, Rehab Referral Accepted - Medication Discharge Medications: Ambulatory Orders Quetiapine Fumarate [Seroquel -] 200 mg PO HS 11/14/16 Trazodone HCl [Desyrel -] 50 mg PO HS 11/14/16 Quetiapine Fumarate [Seroquel -] 200 mg PO HS #30 tab 11/15/16 Trazodone HCl [Desyrel -] 50 mg PO HS #30 tablet 11/15/16 - Diagnosis (1) Drug-induced mood disorder Current Visit: Yes Status: Acute (2) Alcohol dependence with uncomplicated withdrawal Current Visit: Yes Status: Chronic (3) Asthma Current Visit: Yes Status: Chronic Qualifiers: Asthma severity: mild intermittent Asthma complication type: uncomplicated Qualified Code(s): J45.20 - Mild intermittent asthma, uncomplicated (4) Cannabis dependence, uncomplicated Current Visit: Yes Status: Chronic (5) Cocaine dependence, uncomplicated Current Visit: Yes Status: Chronic (6) Nicotine dependence Current Visit: Yes Status: Chronic Qualifiers: Nicotine product type: cigarettes Substance use status: uncomplicated Qualified Code(s): F17.210 - Nicotine dependence, cigarettes, uncomplicated (7) Opioid dependence with withdrawal Current Visit: Yes Status: Chronic (8) Sedative, hypnotic, or anxiolytic withdrawal Current Visit: Yes Status: Chronic (9) Hep C w/o coma, chronic Current Visit: Yes Status: Acute - AMA Did Patient Leave Against Medical Advice: No
[2016-11-19 09:43] VITALS: BP 117/72; PULSE 71; TEMP 98.8
== END 2016-11-19 09:07 | disposition home or self-care (01) | DRG 773 ==
LOC: YASAS 15:51 → Y3N 19:45
PROVIDERS: ADMIT Internal Medicine Addiction Medicine; ATTEND Internal Medicine Addiction Medicine
PROC: HZ2ZZZZ Detoxification Services for Substance Abuse Treatment (ICD-10-PCS; principal; 2016-11-19)
DX: F11.23 Opioid dependence with withdrawal (principal); F13.230 Sedative, hypnotic or anxiolytic dependence with withdrawal, uncomplicated; F10.230 Alcohol dependence with withdrawal, uncomplicated; F14.20 Cocaine dependence, uncomplicated; F12.20 Cannabis dependence, uncomplicated; F17.210 Nicotine dependence, cigarettes, uncomplicated; F19.24 Other psychoactive substance dependence with psychoactive substance-induced mood disorder; J45.20 Mild intermittent asthma, uncomplicated; B18.2 Chronic viral hepatitis C; Z59.0 Homelessness
CPT/HCPCS: 36415; 80053; 81003; 85027; 86593; 87389; 87522; 93005; 93010